=== PATIENT | female | born 1950 | race Caucasian/White ===

== ENCOUNTER 2017-07-06 10:16 | Emergency (ER) | payer SELFPAY ==
[~2017-07-06] VITALS: Ht 162.6 cm; Wt 76.0 kg
[2017-07-06] MEDS ORDERED: IBUPROFEN 600MG TABLET PO STA (15:44)
[2017-07-06 16:12] VITALS: BP 131/74
== END 2017-07-06 16:53 | disposition home or self-care (01) ==
LOC: ER 13:19
DX: M54.89 Other dorsalgia (principal); V43.62XA Car passenger injured in collision with other type car in traffic accident, initial encounter; Y93.89 Activity, other specified; Y92.488 Other paved roadways as the place of occurrence of the external cause
CPT/HCPCS: 71045; 99283

== ENCOUNTER 2018-07-26 06:41 | Emergency (ER) | payer SELFPAY ==
[~2018-07-26] VITALS: Ht 154.9 cm; Wt 72.8 kg
[2018-07-26] MEDS ORDERED: SODIUM CHLORIDE 0.9% 1,000 ML IV ONE (07:15)
[2018-07-26 07:27] LABS: EOSINOPHILS % 1.9 % (0.0-5.0); HEMOGLOBIN. 10.7 g/dL (12.0-16.0); LYMPHOCYTES % 24.4 % (20.0-50.0); MEAN CORPUSCULAR HEMOGLOBIN 26.7 pg (28.0-32.0); MEAN CORPUSCULAR VOLUME 82.5 fL (81.0-99.0); MEAN PLATELET VOLUME 8.8 fl (7.4-10.4); MONOCYTES % 7.4 % (2.0-8.0); NEUTROPHILS % 65.3 % (40.0-76.0); PLATELET 247 x1000/uL (130-400); RED CELL DISTRIBUTION WIDTH 16.1 % (11.6-14.6)
[2018-07-26 07:33] LABS: CHLORIDE 106 mEq/L (98-107)
[2018-07-26 13:57] VITALS: BP 134/76
== END 2018-07-26 13:58 | disposition home or self-care (01) ==
LOC: ER 06:41 → CANBEDREQ 14:04
DX: N93.8 Other specified abnormal uterine and vaginal bleeding (principal); Z12.4 Encounter for screening for malignant neoplasm of cervix
CPT/HCPCS: 36415; 76830; 76856; 80048; 85025; 86850; 86900; 86901; 99284; J7030; Z7610